=== PATIENT | female | born 1960 | race Caucasian/White ===

== ENCOUNTER → 2020-12-23 09:42 | Outpatient (CLI) | payer OTHER, SELFPAY ==
[2020-12-23 19:33] LABS: SARS-CoV-2 RNA PCR Negative
== END ==
PROVIDERS: PCP Family Medicine; Visit Provider Family Medicine
DX: R68.89 Other general symptoms and signs (principal); Z20.822 Contact with and (suspected) exposure to COVID-19
CPT/HCPCS: C9803; U0003; U0005

== ENCOUNTER → 2022-12-11 15:42 | Outpatient (CLI) | payer OTHER, SELFPAY ==
--- NOTE | ~2022-12-11 | CT_ITS ---
EXAMINATION: CT foot LT wo con DATE: 12/11/2022 16:02 INDICATION: Arthritis TECHNIQUE: High resolution computed tomography (CT) of the left foot was performed without intravenou s contrast. Additional sagittal and coronal reconstructions were performed. Automated exposure contro l and iterative reconstruction technique were employed. The dose-length product was 148.95 mGy-cm. COMPARISON: None FINDINGS: Left hindfoot arthrodesis with solid fusion across the subtalar, talonavicular and calcaneocuboid iain nts. There is leg screw extending from the dorsal neck of the talus across the subtalar joint to the posterior tuberosity of the calcaneus and a medial sided staple extending across the fused talonavicu lar joint. There is severe osteoarthritis at the mid and bilateral naviculocuneiform articulations wi th subarticular cystic changes most prominent at the navicular side of the joint space. Moderate oste oarthritis at the third and fourth tarsal metatarsal joints, mild to moderate osteoarthritis at the a nkle joint and mild osteoarthritis at the main tarsal metatarsal joints, the first metatarsophalangea l joint and multiple interphalangeal joints. Small plantar calcaneal spur. No ankle joint effusion or other abnormal fluid collections. IMPRESSION: 1. 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 2. Subtalar, talonavicular and calcaneocuboid arthrodeses with internal fixation as detailed above. Reviewed, dictated and finalized at location A. FARMWORKER IMPRESSION: 1. 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 2. Subtalar, talonavicular and calcaneocuboid arthrodeses with internal fixatio n as detailed above.
== END ==
PROVIDERS: PCP Podiatrist Foot & Ankle Surgery; Visit Provider Podiatrist Foot & Ankle Surgery
DX: M19.072 Primary osteoarthritis, left ankle and foot (principal)
CPT/HCPCS: 73700

== ENCOUNTER → 2023-08-05 14:48 | Outpatient (CLI) | payer OTHER, SELFPAY ==
--- NOTE | ~2023-08-05 | XR_ITS ---
XR chest 2V DATE: 08/05/2023 15:11 INDICATION: Shortness of breath for 2 months. History of COPD. TECHNIQUE: 2 views COMPARISON: 10/30/2017 two-view chest FINDINGS: Bilateral hyperinflation, consistent with clinical history of COPD. No pulmonary infiltrate or consolidation, pleural effusion or pulmonary vascular congestion or pneumo thorax is detected. Normal heart size. No hilar or mediastinal enlargement. Diffuse osteopenia. IMPRESSION: Bilateral hyperinflation; no active cardiopulmonary disease with severe change since 10/03 Reviewed, dictated and finalized at location L. IMPRESSION: Bilateral hyperinflation; no active cardiopulmonary disease with se massimo change since 10/30/2017
== END ==
PROVIDERS: PCP Nurse Practitioner Family; Visit Provider Nurse Practitioner Family
DX: R06.02 Shortness of breath (principal)
CPT/HCPCS: 71046

== ENCOUNTER 2023-10-28 01:22 | Day surgery (SDC) | payer OTHER, SELFPAY ==
[2023-10-21 12:02] VITALS: BMI 31.0
--- NOTE | 2023-10-26 12:26 | SUR.PREOP ---
Patient called regarding upcoming procedure. Reviewed preop instructions, appointment times, and procedure prep.
[2023-10-28 13:22] VITALS: BP 140/82; PULSE 80; RESP 18; TEMP 36.6; O2SAT 100; BMI 31.0
[2023-10-28] MEDS: LACTATED RINGERS 1,000 ML 150 ML IV CONT (13:40)
--- NOTE | 2023-10-28 13:40 | P.PNAN_ITS ---
Anes - Initial Pre Proc Eval Procedure: Operation Date: 10/28/23 14:00 Proposed Procedures p Colonoscopy - Krishna Guy MD Date/Time: 10/28/23 13:40 Surgeon: Krishna Guy MD Pre Op Diagnosis: Other fecal Abnormalities (+cologuard) Patient Data Age: 63 Gender: F Height: 1.63 m Weight: 82 kg Last Vital Signs Temp 98 F 10/28/23 13:22 Pulse 80 10/28/23 13:22 Resp 18 10/28/23 13:22 BP 140/82 10/28/23 13:22 Pulse Ox 100 10/28/23 13:22 O2 Del Method Room Air 10/28/23 13:22 Allergies Allergy/AdvReac Type Severity Reaction Status Date / Time amoxicillin [From Augmentin] AdvReac Nausea Verified 10/28/23 13:20 clavulanic acid AdvReac Nausea Verified 10/28/23 13:20 [From Augmentin] Home Medications Medication Instructions Recorded Confirmed Type lisinopril 10 mg tablet 10 mg PO DAILY 10/21/23 10/28/23 History meloxicam 15 mg tablet 15 mg PO DAILY 10/21/23 10/28/23 History Patient hx anesthesia problems: none Family hx anesthesia problems: none Results Review: All pre-operative results and documents have been reviewed as part of the pre- operative evaluation. [facility] Family History Family History (Updated 01/14/18 @ 14:44 by DOCTOR UNKNOWN) Sibling Acute myocardial infarction Family history of cardiovascular disease Father Patient's father is , Onset Age: 57 Malignant neoplasm of prostate Family history of malignant neoplasm of bone Mother Family history of primary malignant neoplasm of liver Family history of malignant neoplasm of breast in first degree relative Social History Social History Smoking status: Former smoker Tobacco type: cigarettes Substance use type: marijuana Other substance usage details: occassional THC gummy Living arrangements: alone Spiritual care concerns: No Anes - Eval Final PreProcedure Day of Procedure 10/28/23 13:40 Patient weight: obese Heart: regular rate and rhythm Lungs: clear to auscultation Airway: Mallampati scale class II Neurological: alert and oriented Last oral intake: >/= 8 hours ASA classification: II Emergent: no Anesthetic plan: proceed Anesthesia type and monitoring: general GIVS and standard monitoring Results Review: All pre-operative results and documents have been reviewed as part of the pre- operative evaluation. Informed Consent: The patient's anesthetic plan and its attendant risks and benefits were discussed with the patient/family/POA. Questions were solicited and answers provided to the satisfaction of the patient/family/POA.
--- NOTE | 2023-10-28 13:43 | P.HP_ITS ---
History of Present Illness History of Present Illness Consent: Risks, benefits, and alternatives have been discussed and questions answered. Patient agrees to proceed with procedure. Chief complaint: positive cologuard test Narrative: Archana Cody is a 63 year old female presents for colonoscopy. Patient recently found positive Cologuard test. She reports her current weight appetite bowel movements are normal. Patient denies abdominal pain. She has had no bleeding. Family history is noncontributory. Review of Systems Review of Systems: Review of systems noncontributory. [facility] Family History Family History (Updated 01/14/18 @ 14:44 by DOCTOR UNKNOWN) Sibling Acute myocardial infarction Family history of cardiovascular disease Father Patient's father is , Onset Age: 57 Malignant neoplasm of prostate Family history of malignant neoplasm of bone Mother Family history of primary malignant neoplasm of liver Family history of malignant neoplasm of breast in first degree relative Social History Social History Smoking status: Former smoker Tobacco type: cigarettes Substance use type: marijuana Other substance usage details: occassional [facility] Living arrangements: alone Spiritual care concerns: No Meds Home Medications and Allergies Home Medications Medication Instructions Recorded Confirmed Type lisinopril 10 mg tablet 10 mg PO DAILY 10/21/23 10/28/23 History meloxicam 15 mg tablet 15 mg PO DAILY 10/21/23 10/28/23 History liraglutide (weight loss) 3 mg/0.5 0.5 mg subcut 10/28/23 History mL (18 mg/3 mL) subcut pen injector (Saxenda) Allergies Allergy/AdvReac Type Severity Reaction Status Date / Time amoxicillin [From Augmentin] AdvReac Nausea Verified 10/28/23 13:20 clavulanic acid AdvReac Nausea Verified 10/28/23 13:20 [From Augmentin] Vital Signs Vital Signs - 24 hr 10/28/23 13:22 Temperature 98 F Pulse Rate 80 Respiratory Rate 18 Blood Pressure 140/82 Pulse Oximetry 100 Oxygen Delivery Room Air Exam Narrative: Physical exam reveals patient to be alert. Vital signs stable. HEENT exam is unremarkable. Patient is anicteric. Lungs are clear to auscultation and percussion. Heart is without murmur or extra sounds. Abdomen bowel sounds are present soft nontender with no organomegaly. Digital external rectal exam normal. Assessment and Plan Assessment and plan (1) Positive colorectal cancer screening using Cologuard test: Code(s): R19.5 - Other fecal abnormalities Status: Acute Assessment and Plan: Patient presents today for screening colonoscopy because of positive Cologuard test. Further recommendations may be given after endoscopy.
[2023-10-28 14:09] VITALS: BP 126/89; PULSE 73; RESP 20; O2SAT 100
--- NOTE | 2023-10-28 14:15 | SUR.OPER ---
Transverse colon polyp was not retrieved. Dr. Guy notified.
[2023-10-28 14:19] VITALS: BP 127/82; PULSE 77; RESP 20; O2SAT 98
[2023-10-28 14:29] VITALS: BP 131/75; PULSE 72; RESP 18; O2SAT 99
== END 2023-10-28 14:44 | disposition home or self-care (01) ==
PROVIDERS: PCP Nurse Practitioner Family; Visit Provider Internal Medicine Gastroenterology
PROC: 0DJD8ZZ Inspection of Lower Intestinal Tract, Via Natural or Artificial Opening Endoscopic (ICD-10-PCS; CPT 45378; principal; 2023-10-28 14:00)
DX: R19.5 Other fecal abnormalities (principal); D12.3 Benign neoplasm of transverse colon; K64.8 Other hemorrhoids; K57.30 Diverticulosis of large intestine without perforation or abscess without bleeding; Z87.891 Personal history of nicotine dependence
CPT/HCPCS: 45385; J2704; J7120

== ENCOUNTER 2024-08-31 15:39 | Emergency (ER) | payer OTHER, SELFPAY ==
[2024-08-31 15:59] VITALS: BP 136/87; PULSE 92; RESP 16; TEMP 36.9; O2SAT 100
--- NOTE | 2024-08-31 17:45 | PC.NURSE ---
PT HAS BEEN CALLED X3 BY PA FOR MSE EXAM. NOT FOUND IN DEPARTMENT.
== END 2024-08-31 18:22 | disposition left against medical advice (07) ==
PROVIDERS: PCP Nurse Practitioner Family
DX: S89.92XA Unspecified injury of left lower leg, initial encounter (principal); W18.30XA Fall on same level, unspecified, initial encounter
CPT/HCPCS: 99199

== ENCOUNTER 2025-04-24 15:29 | Outpatient (CLI) | payer OTHER, SELFPAY ==
--- NOTE | ~2025-04-24 | CT_ITS ---
EXAMINATION: CT foot LT wo con DATE: 04/24/2025 15:47 INDICATION: Left foot arthritis TECHNIQUE: High resolution computed tomography (CT) of the left foot was performed without intravenou s contrast. Additional sagittal and coronal reconstructions were performed. Automated exposure contro l and iterative reconstruction technique were employed. The dose-length product was 123.40 mGy-cm. COMPARISON: 12/11/2022 FINDINGS: Status post hindfoot arthrodesis involving the subtalar, calcaneocuboid and talonavicular joints. Can nulated lag screw spans the subtalar joint extending from the dorsal neck the talus the posterior tub erosity of the calcaneus. There is there is a staple spanning the medial aspect of the talonavicular joint. These findings are unchanged since the prior study. Severe osteoarthritis at the naviculocunei form articulations with new attempted arthrodesis across the articulation of the navicular and medial cuneiform with a medial plate and screw fixation. There is residual lucency across the joint space w hich appears to remain unfused. Bone alignment throughout the right foot appears near-anatomic. No fr acture. No periosteal reaction or cortical erosions or osteolysis to suggest osteomyelitis. Additiona l polyarticular osteoarthritis, moderate severity at the ankle joint and at the fourth and fifth tars al metatarsal joints. Mild osteoarthritis at the remaining tarsometatarsal joints as well as at multi ple metatarsophalangeal and interphalangeal joints in the forefoot. Moderate fatty atrophy of the int rinsic musculature of the foot. No ankle joint effusion or other abnormal fluid collections identifie d. IMPRESSION: 1. 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 2. Unchanged solid fused subtalar, talonavicular and calcaneocuboid arthrodeses with internal fixatio n as detailed above. 3. Additional polyarticular osteoarthritis, moderate at the ankle and fourth and fifth tarsal metatar yoko joints and mild at many of the remaining joints in the mid and forefoot. Reviewed, dictated and finalized at location A. IMPRESSION: 1. 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 2. Unchanged solid fused subtalar, talonavicular and calcaneocuboid arthrodeses with internal fixation as detailed above. 3. Additional polyarticular osteoarthritis, moderate at the ankle and fourth an d fifth tarsal metatarsal joints and mild at many of the remaining joints in th e mid and forefoot.
== END 2025-04-24 15:30 | disposition home or self-care (01) ==
LOC: MICIMG 15:30
PROVIDERS: PCP Nurse Practitioner Family; Visit Provider Podiatrist Foot & Ankle Surgery
DX: M19.072 Primary osteoarthritis, left ankle and foot (principal); Z98.890 Other specified postprocedural states
CPT/HCPCS: 73700

== ENCOUNTER 2025-10-30 08:42 | Outpatient (CLI) | payer OTHER, SELFPAY ==
--- NOTE | ~2025-10-30 | CT_ITS ---
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 Additional sagittal and coronal reconstructions were performed. Automated exposure control and iterative reconstruction technique were employed. The dose-length product was 119.47 mGy-cm. COMPARISON: 04/24/2025 FINDINGS: Status post hindfoot arthrodesis involving the subtalar, calcaneocuboid and talonavicular joints. Cannulated lag screw spans the subtalar joint extending from the dorsal neck the talus to the posterior tuberosity of the calcaneus. There is a staple spanning the medial aspect of the talonavicular joint. These findings are unchanged since the prior study. Severe osteoarthritis at the naviculocuneiform articulations with unchanged attempted arthrodesis across the articulation of the navicular and medial cuneiform with a medial plate and screw fixation. No evident instrumentation failure or lucency surrounding the screws to suggest loosening. There is persistent residual lucency across the joint space which appears to remain unfused. Bone alignment throughout the right foot appears near-anatomic. No fracture. No periosteal reaction, cortical erosions or osteolysis to suggest osteomyelitis. Additional polyarticular osteoarthritis, moderate severity at the ankle joint and at the fourth and fifth tarsal metatarsal joints. Mild osteoarthritis at the remaining tarsometatarsal joints as well as at multiple metatarsophalangeal and interphalangeal joints in the forefoot. Moderate fatty atrophy of the intrinsic musculature of the foot. No ankle joint effusion or other abnormal fluid collections identified. IMPRESSION: 1. 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 2. Unchanged solid fused subtalar, talonavicular and calcaneocuboid arthrodeses with internal fixation as detailed above. 3. Additional polyarticular osteoarthritis, moderate at the ankle and fourth and fifth tarsal metatarsal joints and mild at many of the remaining joints in the mid and forefoot. Reviewed, dictated and finalized at location A. CIPAL ACCOUNTS CLERK IMPRESSION: 1. 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 2. Unchanged solid fused subtalar, talonavicular and calcaneocuboid arthrodeses with internal fixation as detailed above. 3. Additional polyarticular osteoarthritis, moderate at the ankle and fourth an d fifth tarsal metatarsal joints and mild at many of the remaining joints in th e mid and forefoot.
== END 2025-10-30 08:43 | disposition home or self-care (01) ==
LOC: MICIMG 08:43
PROVIDERS: PCP Nurse Practitioner Family; Visit Provider Podiatrist Foot & Ankle Surgery
DX: M19.172 Post-traumatic osteoarthritis, left ankle and foot (principal); S99.812D Other specified injuries of left ankle, subsequent encounter; X58.XXXD Exposure to other specified factors, subsequent encounter; S99.822D Other specified injuries of left foot, subsequent encounter; Z98.1 Arthrodesis status; T14.8XXD Other injury of unspecified body region, subsequent encounter
CPT/HCPCS: 73700